=== PATIENT | male | born 1960 | race Caucasian/White ===

== ENCOUNTER → 2024-03-01 11:28 | Outpatient (REF) | payer MEDICARE, OTHER, SELFPAY | LOC: HWRAD 11:28 | PROVIDERS: ATTENDING PHYSICIAN Internal Medicine | DX: R60.0 Localized edema (principal); Z86.72 Personal history of thrombophlebitis | CPT/HCPCS: 93971 ==

== ENCOUNTER → 2025-03-27 13:07 | Outpatient (REF) | payer MEDICARE, OTHER, SELFPAY ==
[2025-03-27 14:48] LABS: Hematocrit 45.4 % (39.0-52.0); Hemoglobin 15.6 g/dL (13.0-18.0); Mean Corp Hgb Conc. 34.4 g/dL (33.0-37.0); Mean Corpuscular Volume 91.3 fL (80.0-94.0); Nucleated Red Blood Cells % 0 % (-); Platelet Count 146 10^3/uL (130-400); Red Cell Dist. Width 12.6 % (11.5-14.5)
[2025-03-27 16:04] LABS: Blood Urea Nitrogen 16 mg/dl (9-20); Calcium 9.7 mg/dl (8.4-10.2); Carbon Dioxide 31 mmol/L (22-30); Chloride 103 mmol/L (98-107); Glucose 90 mg/dl (70-99); Potassium 4.3 mmol/L (3.5-5.1); Sodium 138 mmol/L (135-145); eGFR > 60.00
== END ==
LOC: REG 13:07
PROVIDERS: ATTENDING PHYSICIAN Orthopaedic Surgery Hand Surgery; FAMILY PHYSICIAN Internal Medicine
DX: Z01.818 Encounter for other preprocedural examination (principal)
CPT/HCPCS: 36415; 80048; 85025; 93005